=== PATIENT | female | born 1945 | race Caucasian/White ===

== ENCOUNTER → 2024-03-28 09:42 | Outpatient (REF) | payer MEDICARE, BC, SELFPAY | LOC: HWWDC 09:42 | PROVIDERS: ATTENDING PHYSICIAN Internal Medicine | DX: Z12.31 Encounter for screening mammogram for malignant neoplasm of breast (principal) | CPT/HCPCS: 77063; 77067 ==

== ENCOUNTER → 2024-04-19 12:33 | Outpatient (REF) | payer MEDICARE, BC, SELFPAY | LOC: HWRAD 12:33 | PROVIDERS: ATTENDING PHYSICIAN Internal Medicine | DX: R05.3 Chronic cough (principal) | CPT/HCPCS: 71046 ==

== ENCOUNTER → 2024-07-02 10:54 | Outpatient (REF) | payer MEDICARE, BC, SELFPAY | LOC: HWRAD 10:54 | PROVIDERS: ATTENDING PHYSICIAN Obstetrics & Gynecology Gynecologic Oncology; FAMILY PHYSICIAN Internal Medicine | DX: C54.2 Malignant neoplasm of myometrium (principal); I89.0 Lymphedema, not elsewhere classified; N39.0 Urinary tract infection, site not specified | CPT/HCPCS: 71250; 74176 ==

== ENCOUNTER 2024-08-06 15:05 | Outpatient (RCR) | payer MEDICARE, BC, SELFPAY | END 2024-08-06 23:59 | disposition home or self-care (01) | LOC: RPT 15:05 | PROVIDERS: ATTENDING PHYSICIAN Obstetrics & Gynecology Gynecologic Oncology; FAMILY PHYSICIAN Internal Medicine | DX: C54.2 Malignant neoplasm of myometrium (principal); I89.0 Lymphedema, not elsewhere classified; Z73.6 Limitation of activities due to disability | CPT/HCPCS: 97163; 97535; 97760 ==

== ENCOUNTER 2024-08-23 15:03 | Outpatient (RCR) | payer MEDICARE, BC, SELFPAY | END 2024-08-23 23:59 | disposition home or self-care (01) | LOC: RPT 15:03 | PROVIDERS: ATTENDING PHYSICIAN Obstetrics & Gynecology Gynecologic Oncology; FAMILY PHYSICIAN Internal Medicine | DX: I89.0 Lymphedema, not elsewhere classified (principal); C54.2 Malignant neoplasm of myometrium; Z73.6 Limitation of activities due to disability | CPT/HCPCS: 97140; 97535 ==

== ENCOUNTER → 2024-08-29 08:04 | Outpatient (REF) | payer MEDICARE, BC, SELFPAY | LOC: HWRAD 08:04 | PROVIDERS: ATTENDING PHYSICIAN Internal Medicine | DX: R10.84 Generalized abdominal pain (principal) | CPT/HCPCS: 76700 ==

== ENCOUNTER 2024-09-27 15:10 | Outpatient (RCR) | payer MEDICARE, BC, SELFPAY | END 2024-09-27 23:59 | disposition home or self-care (01) | LOC: RPT 15:10 | PROVIDERS: ATTENDING PHYSICIAN Obstetrics & Gynecology Gynecologic Oncology; FAMILY PHYSICIAN Internal Medicine | DX: I89.0 Lymphedema, not elsewhere classified (principal); C54.2 Malignant neoplasm of myometrium; Z73.6 Limitation of activities due to disability | CPT/HCPCS: 97140; 97535 ==

== ENCOUNTER 2025-01-14 08:18 | Outpatient (RCR) | payer MEDICARE, BC, SELFPAY | END 2025-01-14 23:59 | disposition home or self-care (01) | LOC: RPT 08:18 | PROVIDERS: ATTENDING PHYSICIAN Nurse Practitioner Adult Health; FAMILY PHYSICIAN Internal Medicine | DX: I89.0 Lymphedema, not elsewhere classified (principal); C54.2 Malignant neoplasm of myometrium; Z73.6 Limitation of activities due to disability | CPT/HCPCS: 97163; 97530 ==

== ENCOUNTER 2025-02-14 11:07 | Outpatient (RCR) | payer MEDICARE, BC, SELFPAY | END 2025-02-14 23:59 | disposition home or self-care (01) | LOC: RPT 11:07 | PROVIDERS: ATTENDING PHYSICIAN Nurse Practitioner Adult Health; FAMILY PHYSICIAN Internal Medicine | DX: I89.0 Lymphedema, not elsewhere classified (principal); C54.2 Malignant neoplasm of myometrium; Z73.6 Limitation of activities due to disability | CPT/HCPCS: 97140; 97530 ==

== ENCOUNTER → 2025-03-11 09:30 | Outpatient (REF) | payer MEDICARE, BC, SELFPAY | LOC: WDC 09:30 | PROVIDERS: ATTENDING PHYSICIAN Internal Medicine | DX: N63.10 Unspecified lump in the right breast, unspecified quadrant (principal); N63.12 Unspecified lump in the right breast, upper inner quadrant | CPT/HCPCS: 76642; 77062; 77066 ==

== ENCOUNTER → 2025-03-27 08:49 | Outpatient (REF) | payer MEDICARE, BC, SELFPAY ==
--- NOTE | 2025-03-27 14:25 | OID.BR.INTR ---
[facility] - Initial
- -
Date of Contact: 03/27/25
Met with patient. Patient given written information on navigator service at [facility]. Will follow up as needed per protocol.
== END ==
LOC: WDC 08:49
PROVIDERS: ATTENDING PHYSICIAN Internal Medicine
DX: N63.12 Unspecified lump in the right breast, upper inner quadrant (principal)
CPT/HCPCS: 88305; 19083; 88341; 88360; A4648

== ENCOUNTER 2025-04-08 06:30 | Outpatient (RCR) | payer MEDICARE, BC, SELFPAY | END 2025-04-09 06:35 | disposition home or self-care (01) | LOC: RPT 06:30 | PROVIDERS: ATTENDING PHYSICIAN Nurse Practitioner Adult Health; FAMILY PHYSICIAN Internal Medicine | DX: I89.0 Lymphedema, not elsewhere classified (principal); C54.2 Malignant neoplasm of myometrium; Z73.6 Limitation of activities due to disability; N39.0 Urinary tract infection, site not specified; C50.919 Malignant neoplasm of unspecified site of unspecified female breast | CPT/HCPCS: 97140; 97530 ==

== ENCOUNTER → 2025-04-15 11:06 | Outpatient (REF) | payer MEDICARE, BC, SELFPAY | LOC: WDC 11:06 | PROVIDERS: ATTENDING PHYSICIAN Surgery; FAMILY PHYSICIAN Internal Medicine | DX: R92.2 Inconclusive mammogram (principal); C50.411 Malignant neoplasm of upper-outer quadrant of right female breast | CPT/HCPCS: 76641 ==

== ENCOUNTER → 2025-06-16 07:48 | Outpatient (REF) | payer MEDICARE, BC, SELFPAY | LOC: WDC 07:48 | PROVIDERS: ATTENDING PHYSICIAN Surgery | DX: C50.411 Malignant neoplasm of upper-outer quadrant of right female breast (principal) | CPT/HCPCS: 19285; 38792; 76942; A4648; A9541 ==

== ENCOUNTER 2025-06-17 06:17 | Day surgery (SDC) | payer MEDICARE, BC, SELFPAY ==
[2025-06-03 14:06] VITALS: BMI 37.1
[2025-06-17] VITALS (10 sets, daily range): BP systolic 140–167; BP diastolic 65–85; BMI 37.1
[2025-06-17] MEDS: TYLENOL 1000 MG PO (10:27)
[2025-06-17] MEDS: VANCOCIN 530 MG IV (10:27)
[2025-06-17] MEDS: NORMOSOL-R/PLASMALYTE-A 1000 IV (10:28)
[2025-06-17] MEDS: LOVENOX 40 MG SC (10:39)
--- NOTE | 2025-06-17 12:51 | W.IMMPOSTOP ---
Surgical Immed Post Op Note
-
Primary Surgeon: Kaylah
Assisting Surgeon: None
Pre-op Diagnosis: Right breast ca
Post-op Diagnosis: Right breast ca
Procedure Performed: Right localized lumpectomy, sentinel lymph node mapping and biopsy
Anesthesia Type: TIVA
Specimen / Cultures: [place] nodes, right lumpectomy, margins
Estimated Blood Loss: 6cc
Complications: None
Operative Findings: Clip, mass and reflector in specimen
--- NOTE | 2025-06-17 12:53 | OR.RPT ---
Operative Report
Operative Report
Date of procedure: 06/17/2025
Surgeon: Kaylah
Preoperative diagnosis right breast carcinoma and bilateral skin rash
Postoperative diagnosis: Same
Procedure right localized lumpectomy and sentinel lymph node mapping and biopsy
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
She desired breast conservation surgery. She did meet criteria for elimination of axillary sampling however due to the lobular histology and the low number of lobular patients in 2 prospective studies so joint decision was made to perform axillary
sampling through sentinel node mapping and biopsy.
Additionally the patient had complained of bilateral skin rashes in the inframammary folds which on examination today are consistent with usual fungal infections which are not near the operative field and which are minimal.
On the day prior to the procedure the patient presented to the [facility] center where Nereyda reflector was placed at the tumor site and technetium radiotracer was injected into the breast parenchyma. On the day of previous the procedure the
patient presented to same-day surgical services where she was prepped. DVT and antibiotic prophylaxis were provided and she was taken to the operating room. In the supine position intravenous sedation was delivered and the right breast and axilla
were prepped and draped in the usual sterile fashion. Timeout procedure was performed by all staff members.
Attention was first turned to the axilla. All tissues were anesthetized with 1% lidocaine plain and a curvilinear incision was made inferior to the hairline overlying the area of highest external gamma count. Dissection was carried through
clavipectoral fascia using the cautery. Using the neoprobe gamma probe 3 sentinel node packets were encountered and excised by tying feeding vessels with 3-0 silk. These nodes were sent for permanent analysis. After the removal there was a
greater than 4 fold reduction of background count. Hemostasis was verified and Marcaine 0.5% plain was instilled into the tissues. Wound was closed using simple interrupted 3-0 plain in deep intermediate and subcutaneous tissue and skin was closed
with a running subcuticular 4-0 Monocryl.
Then the tissues in the tumor in the breast were anesthetized with 1% lidocaine plain and a curvilinear incision was made overlying the area of highest Nereyda signal. Skin flaps were elevated using the cautery. Neryeda reflector was used to sound out
the location of the tumor which was widely excised. Time out of body was noted and the specimen was oriented for the pathologist. Specimen radiography confirmed the presence of mass, clip, and reflector within it. Additional margins were
harvested for permanent analysis from the posterior, medial, superior, lateral, inferior, and anterior dimensions. These were oriented and sent under separate cover. Hemostasis was verified in this wound. Marcaine 0.5% plain was instilled and
hemoclips were placed in the resection cavity. This wound was closed in the same fashion as the axilla.
Surgical glue and sterile compressive dressings were applied. All sponge needle and instrument counts were correct and the patient was transferred to the recovery room in stable condition.
([id number])
[place] Node Bx Breast Cancer
[place] Node Bx Breast Cancer
Operation performed with curative intent: Yes
Tracer(s) to ID [place] Nodes in Non-Neoadjuvant setting: Radioactive Tracer
Tracer(s) to ID [place] Nodes in the Neoadjuvant Setting: N/A
All nodes at end of dye-filled Lymphatic Channel removed: N/A
All Significantly Radioactive Nodes were removed: Yes
All Palpably Suspicious Nodes were Removed: Yes
Bx Proven Pos Nodes Marked Prior to Chemo ID'd & Removed: N/A
--- NOTE | 2025-06-17 13:07 | SUR.PHASEI ---
REc'd sleepy, agitated, pulling at everything reassured oriented x 3 by RN, placed on bedpan, no edema or ecchymosis noted R ax
--- NOTE | 2025-06-17 13:27 | SUR.PHASEI ---
voided large amt urine, missed bedpan, pt cleaned pablo well, taking denies pain reassured, warm blanket given
--- NOTE | 2025-06-17 13:33 | SUR.PHASEI ---
More alert, states 'I'm slepy' reassured, encouraged to rest
--- NOTE | 2025-06-17 13:48 | SUR.PHASEI ---
More alert, SDS texted, vss, no c/o
== END 2025-06-17 16:01 | disposition home or self-care (01) ==
LOC: SDS 06:17
PROVIDERS: ATTENDING PHYSICIAN Surgery; FAMILY PHYSICIAN Internal Medicine
DX: C50.811 Malignant neoplasm of overlapping sites of right female breast (principal); R21 Rash and other nonspecific skin eruption; N64.59 Other signs and symptoms in breast; Z85.3 Personal history of malignant neoplasm of breast; C50.412 Malignant neoplasm of upper-outer quadrant of left female breast; Z17.0 Estrogen receptor positive status [ER+]
CPT/HCPCS: 38525; 19301; 76098; 88305; 88307; 88342; L8000

== ENCOUNTER → 2025-07-31 13:11 | Outpatient (REF) | payer MEDICARE, BC, SELFPAY | LOC: HWRAD 13:11 | PROVIDERS: ATTENDING PHYSICIAN Nurse Practitioner; FAMILY PHYSICIAN Internal Medicine | DX: N39.0 Urinary tract infection, site not specified (principal) | CPT/HCPCS: 76770; 76856 ==

== ENCOUNTER → 2025-08-22 10:46 | Outpatient (REF) | payer MEDICARE, SELFPAY ==
[2025-08-22 11:38] LABS: Glucose 104 mg/dl (70-99)
== END ==
LOC: PET 10:46
PROVIDERS: ATTENDING PHYSICIAN Internal Medicine Hematology & Oncology; REFERRING PHYSICIAN Obstetrics & Gynecology Gynecologic Oncology
DX: C50.811 Malignant neoplasm of overlapping sites of right female breast (principal); C54.2 Malignant neoplasm of myometrium; I89.0 Lymphedema, not elsewhere classified; N39.0 Urinary tract infection, site not specified; A41.9 Sepsis, unspecified organism
CPT/HCPCS: 36415; 82947

== ENCOUNTER → 2025-10-02 09:07 | Outpatient (REF) | payer MEDICARE, BC, SELFPAY | LOC: RAD 09:07 | PROVIDERS: ATTENDING PHYSICIAN Internal Medicine; FAMILY PHYSICIAN Internal Medicine; REFERRING PHYSICIAN Internal Medicine Hematology & Oncology | DX: M80.011A Age-related osteoporosis with current pathological fracture, right shoulder, initial encounter for fracture (principal); Z78.0 Asymptomatic menopausal state | CPT/HCPCS: 77080 ==

== ENCOUNTER 2025-11-18 09:05 | Outpatient (RCR) | payer MEDICARE, BC, SELFPAY | END 2025-11-18 23:59 | disposition home or self-care (01) | LOC: RPT 09:05 | PROVIDERS: ATTENDING PHYSICIAN Surgery; FAMILY PHYSICIAN Internal Medicine | DX: C50.811 Malignant neoplasm of overlapping sites of right female breast (principal); Z73.6 Limitation of activities due to disability; M62.81 Muscle weakness (generalized) | CPT/HCPCS: 97110; 97140; 97163; 97530 ==